=== PATIENT | female | born 1970 | race Caucasian/White ===

== ENCOUNTER 2020-04-07 19:39 | Emergency (ER) | payer MEDICAID, SELFPAY ==
[2020-04-07 19:46] VITALS: BP 126/79; PULSE 89; RESP 18; TEMP 36.9; O2SAT 97; BMI 45.1
--- NOTE | 2020-04-07 19:50 | ED_ITS ---
HPI - Chest Pain General Chief Complaint: Chest Pain Stated Complaint: chest pain Time Seen by Provider: 04/07/20 19:50 Source: patient Mode of arrival: EMS Limitations: no limitations History of Present Illness HPI narrative: During dialysis patient had chest pain. Patient had a stress test in the recent past no CAD, does have a history of CHF MD complaint: chest heaviness Onset (ago): minute(s) (10) Onset: other (during dialysis) Pain location: substernal Quality: tightness Exacerbating factors: other (patient dropped her pressure and they gave her IV fluid and she did well) Related Data Allergies Allergy/AdvReac Type Severity Reaction Status Date / Time levofloxacin [From Levaquin] Allergy Anaphylaxis Verified 04/07/20 19:57 Review of Systems Constitutional: Constitutional: Reports no additional constitutional complaints Eyes: Eyes: Reports no additional eye complaints ENT: Denies dizziness Cardiovascular: Cardiovascular: Reports no additional cardiovascular complaints Respiratory: Respiratory: Reports as per HPI Gastrointestinal: Gastrointestinal: Reports no additional gastrointestinal complaints Genitourinary: Genitourinary: Reports no additional female genitourinary complaints Musculoskeletal: Musculoskeletal: Reports no additional musculoskeletal complaints Integumentary/Breasts: Skin/Breast: Denies rash Neurologic: Reports system reviewed and no additional complaints, except as documented, Denies dizziness and Denies Sensory deficit (Neuro) Psychiatric: Psychiatric: Denies anxiety [facility] Past Medical History Medical History (Updated 04/08/20 @ 01:18 by Ethan Lopez MD) CHF (congestive heart failure) Dialysis patient Kidney disease Raynaud disease Social History Social History Alcohol intake: never Smoking Status: Former smoker Smoked in Last 30 Days: No Use of substances other than those prescribed or required for medical reasons: No Advance Directives: No Advance Directives Information Provided: Yes Physical Exam Vital Signs: Vital Signs: Vital Signs Temp Pulse Resp BP Pulse Ox 04/07/20 23:23 86 18 127/72 100 04/07/20 19:46 98.4 F 89 18 126/79 97 Body Mass Index 45.1 Const: Other: obese female looking older than stated age and chronically ill Nutritional Appearance: obese Orientation/consciousness: oriented to person and patient oriented x3 Limitations: no limitations HENMT: Head: Yes normal to inspection Ears: external ears normal General nose exam: Normal external nose present Mouth: Normal oral and palatal mucosa present and oropharynx normal Throat: Yes posterior oropharynx normal Eyes: General: appearance normal, both eyes and all related structures Neck: Other: supple Neck: Yes normal visual inspection Chest: Chest palpation & inspection: normal inspection of the chest Resp: Auscultation: clear to auscultation bilaterally Cardio: Jugular venous distension: no JVD Rate: regular rate Rhythm: regular rhythm Heart sounds: S1 normal heart sound present and S2 normal heart sound present GI: Inspection: Yes normal to inspection Palpation (GI): Soft to palpation, nontender and No hepatosplenomegaly present Auscultation: normal bowel sounds : General: Yes no CVA tenderness Back/Spine/Pelvis: Back: no CVA tenderness Skin: General skin exam: no rashes or lesions noted Neuro: General: oriented to person and patient oriented x3 Cranial nerves: Yes CN's II-XII intact bilaterally Motor exam (neuro): 5/5 motor strength present throughout Sensory Exam: No Sensory deficit (Neuro) Extrem: Other: fistula in right arm Psych: Appearance: grossly normal Course Course Course Narrative: troponin came back intermediate, I doubt this is cardiac but will trend levels Reevaluation(s) Reevaluation #1: patient with decreasing troponin based on unlikely cardiac story will dc home Time: 01:13 MDM - Chest Pain MDM Narrative Medical decision making narrative: atypical chest pain decreasing intermediate troponin Lab Data Result diagrams: 04/07/20 21:02 04/07/20 21:02 Labs: Lab Results 04/07/20 04/07/20 04/07/20 Range/Units 21:02 21:02 21:02 WBC 6.2 (4.8-10.8) X10*3/uL RBC 3.29 L (4.20-5.50) X10*6/uL Hgb 11.0 L (12.0-16.0) g/dl Hct 32.4 L (37-47) % MCV 98.5 H (80-98) fL MCH 33.4 H (27.0-33.0) pg MCHC 34.0 (31.0-35.0) g/dl RDW 14.2 (11.0-16.0) % Plt Count 154 L (160-400) X10*3/uL MPV 9.1 L (9.4-12.3) fL Immature Gran % (Auto) 0.5 H (0.0-0.4) % Neut % (Auto) 59.7 (45-73) % Lymph % (Auto) 32.4 (20-40) % Peach % (Auto) 5.8 (2-11) % Eos % (Auto) 1.3 (0-4) % Baso % (Auto) 0.3 (0-2) % Lymph # (Auto) 2.0 (1.2-4.9) X10*3/uL Peach # (Auto) 0.4 (0.1-1.2) X10*3/uL Eos # (Auto) 0.1 (0.0-0.4) X10*3/uL Baso # (Auto) 0.0 (0.0-0.2) X10*3/uL Abs Immat Gran (auto) 0.03 (0.00-0.03) X10*3/uL Absolute Neuts (auto) 3.7 (2.0-8.3) X10*3/uL Absolute Nucleated RBC 0.000 (0.0-0.012) X10*3/uL Nucleated RBC % (auto) 0.0 (0.0-0.2) /100WBC Sodium 137 (135-145) mmol/L Potassium 4.2 (3.3-5.1) mmol/l Chloride 97 (96-108) mmol/L Carbon Dioxide 29 (22-29) mmol/L Anion Gap 15 (12-20) BUN 42 H (9-16) mg/dL Creatinine 5.92 H* (0.5-1.4) mg/dL Estim Creat Clear Calc 14.4 Estimated GFR 8 Random Glucose 80 (60-115) mg/dL Calcium 8.4 (8.4-10.2) mg/dL Troponin I High Sens 29.7 H (<3.5-17.0) ng/L 04/08/20 Range/Units 00:17 WBC (4.8-10.8) X10*3/uL RBC (4.20-5.50) X10*6/uL Hgb (12.0-16.0) g/dl Hct (37-47) % MCV (80-98) fL MCH (27.0-33.0) pg MCHC (31.0-35.0) g/dl RDW (11.0-16.0) % Plt Count (160-400) X10*3/uL MPV (9.4-12.3) fL Immature Gran % (Auto) (0.0-0.4) % Neut % (Auto) (45-73) % Lymph % (Auto) (20-40) % Peach % (Auto) (2-11) % Eos % (Auto) (0-4) % Baso % (Auto) (0-2) % Lymph # (Auto) (1.2-4.9) X10*3/uL Peach # (Auto) (0.1-1.2) X10*3/uL Eos # (Auto) (0.0-0.4) X10*3/uL Baso # (Auto) (0.0-0.2) X10*3/uL Abs Immat Gran (auto) (0.00-0.03) X10*3/uL Absolute Neuts (auto) (2.0-8.3) X10*3/uL Absolute Nucleated RBC (0.0-0.012) X10*3/uL Nucleated RBC % (auto) (0.0-0.2) /100WBC Sodium (135-145) mmol/L Potassium (3.3-5.1) mmol/l Chloride (96-108) mmol/L Carbon Dioxide (22-29) mmol/L Anion Gap (12-20) BUN (9-16) mg/dL Creatinine (0.5-1.4) mg/dL Estim Creat Clear Calc Estimated GFR Random Glucose (60-115) mg/dL Calcium (8.4-10.2) mg/dL Troponin I High Sens 19.6 H (<3.5-17.0) ng/L ECG Data ECG #1: Interpretation: sinus [address] or twave changes Discharge Plan Discharge Clinical Impression: Atypical chest pain Patient Disposition: Home, Self-Care Instructions: Chest Pain (ED) Referrals: Physician,Unknown [Primary Care Provider] - 2 days
--- NOTE | 2020-04-07 20:06 | ECG_ITS ---
Test Reason : CHEST PAIN Blood Pressure : / mmHG Vent. Rate : 087 BPM Atrial Rate : 089 BPM P-R Int : 174 ms QRS Dur : 088 ms QT Int : 390 ms P-R-T Axes : 050 040 073 degrees QTc Int : 469 ms Normal sinus rhythm Normal ECG No previous ECGs available Referred By: Ethan Lopez Electronically Signed By:VEL VOGEL MD
[2020-04-07 21:09] LABS: Basophils Percent Auto 0.3 % (0-2); Eosinophils Absolute Auto 0.1 X10*3/uL (0.0-0.4); Eosinophils Percent Auto 1.3 % (0-4); Hematocrit 32.4 % (37-47); Imm Gran Abs Auto 0.03 X10*3/uL (0.00-0.03); Imm Gran Pct Auto 0.5 % (0.0-0.4); Lymphocytes Percent Auto 32.4 % (20-40); MANUAL DIFF FLAG NO; Mean Corpuscular Hemoglobin 33.4 pg (27.0-33.0); Mean Corpuscular Volume 98.5 fL (80-98); Mean Platelet Volume 9.1 fL (9.4-12.3); Monocytes Absolute Auto 0.4 X10*3/uL (0.1-1.2); Monocytes Percent Auto 5.8 % (2-11); Neutrophils Absolute Auto 3.7 X10*3/uL (2.0-8.3); Neutrophils Percent Auto 59.7 % (45-73); Platelet Count 154 X10*3/uL (160-400); Red Blood Count 3.29 X10*6/uL (4.20-5.50); Red Cell Distribution Width 14.2 % (11.0-16.0); White Blood Count 6.2 X10*3/uL (4.8-10.8)
[2020-04-07 21:54] LABS: Anion Gap 15 (12-20); Blood Urea Nitrogen 42 mg/dL (9-16); Calcium 8.4 mg/dL (8.4-10.2); Carbon Dioxide 29 mmol/L (22-29); Chloride 97 mmol/L (96-108); Creatinine Clr Calc Pharmacy 14.4; Estimated Glomerular Filt Rate 8; Glucose Random 80 mg/dL (60-115); Potassium 4.2 mmol/l (3.3-5.1); Sodium 137 mmol/L (135-145)
[2020-04-07 22:00] LABS: Troponin-I High Sensitivity 29.7 ng/L (<3.5-17.0)
[2020-04-07 23:23] VITALS: BP 127/72; PULSE 86; RESP 18; O2SAT 100
[2020-04-08 01:10] LABS: Troponin-I High Sensitivity 19.6 ng/L (<3.5-17.0)
== END 2020-04-08 02:46 | disposition home or self-care (01) ==
PROVIDERS: Emergency Provider Emergency Medicine
DX: R07.89 Other chest pain (principal); Z79.899 Other long term (current) drug therapy
CPT/HCPCS: 36415; 80048; 84484; 85025; 93005; 99283; 99284

== ENCOUNTER 2020-07-20 19:57 | Emergency (ER) | payer MEDICAID, SELFPAY ==
[2020-07-20 20:06] VITALS: BP 132/84; BP 135/72; PULSE 91; PULSE 96; RESP 18; TEMP 36.6; O2SAT 96; BMI 48.5
--- NOTE | 2020-07-20 20:12 | PC.NURSE ---
patient a&ox3, wheelchair baseline, patient has a rt av fistula + bruit/thrill, patient also has a rt chest dialysis cath. she has dialysis on , , fri.
--- NOTE | 2020-07-20 21:36 | XR_ITS ---
EXAMINATION: XR CHEST CLINICAL INFORMATION: Cough. COMPARISON: None TECHNIQUE: Frontal portable view of the chest was obtained. 2150 hours FINDINGS: Tubes and lines: Central port catheter tip at cavoatrial junction superior vena cava. Heart size is enlarged. No pulmonary vascular congestion. No airspace opacities. There is slight blunting of costophrenic angles bilaterally may be due to small pleural effusions. XR/XR chest 1V IMPRESSION: 1. Central port catheter tip in superior vena cava. 2. No acute airspace opacities. 3. Blunting costophrenic angles bilateral, possible small bilateral pleural effusions
--- NOTE | 2020-07-20 21:46 | ED_ITS ---
HPI - General Adult General Chief complaint: General Medical Stated complaint: covid coughing bllod Time Seen by Provider: 07/20/20 21:33 Source: patient Mode of arrival: EMS History of Present Illness HPI narrative: This is a 49-year-old female who presents with a few days of noted hemoptysis that she states occurs every time she begins coughing that she has blood streaking into the sputum. She denies any blood clots coming up and denies any choking sensation, shortness of breath, chest pain/palpitations. She states that the initial diarrhea that she had when she was diagnosed with COVID- 19 has completely resolved and rarely makes urine at baseline due to ESRD. When she discussed her symptoms with her coding consultant she was encouraged to be seen and further evaluated in the emergency department. Related Data Allergies Allergy/AdvReac Type Severity Reaction Status Date / Time levofloxacin [From Levaquin] Allergy Anaphylaxis Verified 04/07/20 19:57 Review of Systems Review of Systems: Pertinent positives and negatives as stated in HPI 10 point review of systems is otherwise negative. PMFSH Past Medical History Source: nursing notes reviewed Medical History CHF (congestive heart failure) COPD (chronic obstructive pulmonary disease) Dialysis patient ESRD (end stage renal disease) HTN (hypertension) Hypothyroid Kidney disease Obesity Raynaud disease Social History Social History Alcohol intake: never Smoking Status: Former smoker Use of substances other than those prescribed or required for medical reasons: No Advance Directives: No Advance Directives Information Provided: Yes Physical Exam Vital Signs: Vital Signs: Last Vital Signs Temp 97.8 F 07/20/20 20:06 Pulse 91 07/20/20 20:06 Resp 18 07/20/20 20:06 BP 135/72 07/20/20 20:06 Pulse Ox 96 07/20/20 20:06 Body Mass Index 48.5 VITAL SIGNS: Reviewed. GENERAL: Well developed, well nourished, in no acute distress. NOSE: Nares patent bilateral OROPHARYNX: no oral lesions noted, posterior pharynx clear, no evidence of stigmata of bleeding within the oral cavity or posterior pharynx NECK: Supple, no adenopathy LUNGS: Normal breath sounds. SpO2<96> CHEST WALL: There is a noted dialysis catheter to the right anterior chest wall without evidence of erythema/induration noted CARDIOVASCULAR: Regular rate and rhythm without noted murmurs, no JVD or lower extremity edema. ABDOMEN: Obese, Soft, non-tender, non-distended with bowel sounds. DRAGAN: No skin/tags/external hemorrhoids noted, hard stool/brown in color without gross evidence of blood and good rectal tone. SKIN: Inspection of the skin reveals no rashes, ulcerations, jaundice, pallor, or petechiae. NEUROLOGIC: Alert and oriented x 4. Course Course Course Narrative: This is a 49-year-old female with history and clinical presentation suggestive of irritation associated with coughing contributing to the blood streaking of the sputum, however due to patient's significant medical comorbidities will insure that there is no evidence on imaging or coagulation studies to include platelet count to suggest a more concerning etiology. On review of all investigations there are no acute findings. All results and findings were discussed with the patient at bedside and she was discharged in stable condition with instructions to follow up should she developed any coughing up of clots or shortness of breath, fevers, chills. Medical Decision Making Lab Data Result diagrams: 07/20/20 22:12 07/20/20 22:12 Labs: Lab Results 07/20/20 07/20/20 07/20/20 Range/Units 22:12 22:12 22:12 WBC 5.1 (4.8-10.8) X10*3/uL RBC 3.21 L (4.20-5.50) X10*6/uL Hgb 10.5 L (12.0-16.0) g/dl Hct 32.0 L (37-47) % MCV 99.7 H (80-98) fL MCH 32.7 (27.0-33.0) pg MCHC 32.8 (31.0-35.0) g/dl RDW 12.2 (11.0-16.0) % Plt Count 189 (160-400) X10*3/uL MPV 9.5 (9.4-12.3) fL Immature Gran % (Auto) 0.4 (0.0-0.4) % Neut % (Auto) 52.3 (45-73) % Lymph % (Auto) 39.6 (20-40) % Louisa % (Auto) 6.9 (2-11) % Eos % (Auto) 0.6 (0-4) % Baso % (Auto) 0.2 (0-2) % Lymph # (Auto) 2.0 (1.2-4.9) X10*3/uL Louisa # (Auto) 0.4 (0.1-1.2) X10*3/uL Eos # (Auto) 0.0 (0.0-0.4) X10*3/uL Baso # (Auto) 0.0 (0.0-0.2) X10*3/uL Abs Immat Gran (auto) 0.02 (0.00-0.03) X10*3/uL Absolute Neuts (auto) 2.7 (2.0-8.3) X10*3/uL Absolute Nucleated RBC 0.000 (0.0-0.012) X10*3/uL Nucleated RBC % (auto) 0.0 (0.0-0.2) /100WBC PT 13.0 (10.8-13.0) SEC INR 1.1 (0.9-1.1) Sodium 143 (135-145) mmol/L Potassium 3.8 (3.3-5.1) mmol/l Chloride 99 (96-108) mmol/L Carbon Dioxide 31 H (22-29) mmol/L Anion Gap 17 (12-20) BUN 24 H (9-16) mg/dL Creatinine 4.83 H* (0.5-1.4) mg/dL Estim Creat Clear Calc 18.4 Estimated GFR 10 Random Glucose 87 (60-115) mg/dL Calcium 9.2 D (8.4-10.2) mg/dL Total Bilirubin 0.5 (0.0-1.0) mg/dL AST 20 (5-31) U/L ALT 19 (0-31) U/L Alkaline Phosphatase 72 (39-117) U/L Total Protein 7.8 (6.5-8.0) g/dL Albumin 4.1 (3.5-5.0) g/dL Discharge Plan Discharge Clinical Impression: Blood-tinged sputum Patient Disposition: Home, Self-Care Additional Instructions: 1. Resume all home medications as prescribed. 2. Should you began coughing up bloody clots or have any difficulty with worsening breathing please do not hesitate to return to the emergency department immediately. Referrals: Physician,Unknown [Primary Care Provider] - 2 days
[2020-07-20 22:20] LABS: MANUAL DIFF FLAG NO
[2020-07-20 22:21] LABS: Basophils Percent Auto 0.2 % (0-2); Eosinophils Percent Auto 0.6 % (0-4); Hemoglobin 10.5 g/dl (12.0-16.0); Imm Gran Abs Auto 0.02 X10*3/uL (0.00-0.03); Imm Gran Pct Auto 0.4 % (0.0-0.4); Lymphocytes Percent Auto 39.6 % (20-40); Mean Corpuscular HGB Conc 32.8 g/dl (31.0-35.0); Mean Corpuscular Hemoglobin 32.7 pg (27.0-33.0); Mean Corpuscular Volume 99.7 fL (80-98); Mean Platelet Volume 9.5 fL (9.4-12.3); Monocytes Absolute Auto 0.4 X10*3/uL (0.1-1.2); Monocytes Percent Auto 6.9 % (2-11); Neutrophils Absolute Auto 2.7 X10*3/uL (2.0-8.3); Neutrophils Percent Auto 52.3 % (45-73); Platelet Count 189 X10*3/uL (160-400); Red Blood Count 3.21 X10*6/uL (4.20-5.50); Red Cell Distribution Width 12.2 % (11.0-16.0); White Blood Count 5.1 X10*3/uL (4.8-10.8)
[2020-07-20 22:41] LABS: INTERNATIONAL NORM RATIO 1.1 (0.9-1.1)
[2020-07-20 22:47] LABS: Alanine Aminotransferase 19 U/L (0-31); Albumin Level 4.1 g/dL (3.5-5.0); Alkaline Phosphatase 72 U/L (39-117); Anion Gap 17 (12-20); Aspartate Amino Transferase 20 U/L (5-31); Bilirubin Total 0.5 mg/dL (0.0-1.0); Blood Urea Nitrogen 24 mg/dL (9-16); Calcium 9.2 mg/dL (8.4-10.2); Carbon Dioxide 31 mmol/L (22-29); Chloride 99 mmol/L (96-108); Creatinine Clr Calc Pharmacy 18.4; Estimated Glomerular Filt Rate 10; Glucose Random 87 mg/dL (60-115); Potassium 3.8 mmol/l (3.3-5.1); Sodium 143 mmol/L (135-145); Total Protein 7.8 g/dL (6.5-8.0)
== END 2020-07-21 01:10 | disposition home or self-care (01) ==
PROVIDERS: Emergency Provider Student in an Organized Health Care Education/Training Program
DX: R04.2 Hemoptysis (principal); I13.2 Hypertensive heart and chronic kidney disease with heart failure and with stage 5 chronic kidney disease, or end stage renal disease; N18.6 End stage renal disease; I50.9 Heart failure, unspecified; Z99.2 Dependence on renal dialysis; J44.9 Chronic obstructive pulmonary disease, unspecified
CPT/HCPCS: 36415; 71045; 80053; 85025; 85610; 99283; 99284

== ENCOUNTER → 2020-11-30 09:07 | Outpatient (REF) | payer MEDICAID, SELFPAY ==
--- NOTE | ~2020-11-30 | NM_ITS ---
Myocardial perfusion study Indication: Cardiomyopathy to evaluate for myocardial ischemia Technique: The patient was brought in for a Lexiscan perfusion study on 11/30/2020. Patient performed low-level exercise and was injected 0.4 mg of Lexiscan intravenously. Within a minute of injection, 35 mCi of sestamibi was given intravenously. Images were obtained using the SPECT gamma camera interlaced with the gating device. Images were obtained in supine position. Resting perfusion study was performed on 12/05/2020. Patient was administered 35 mCi of sestamibi intravenously at rest. Images were then obtained in supine position. Images obtained with and without CT attenuation. Total DLP 130 mGy-cm. Images were processed with the software and compared side to side in short axis, horizontal long axis and vertical long axis views. Findings: The stress perfusion study showed nonattenuated images show some thinning of the distal anterolateral wall of the LV myocardium and the distal anterior wall of the LV myocardium with minimally reduced uptake in the basal and mid anterior wall of the LV myocardium attenuation corrected images show mild thinning of the mid anterior and reduced uptake in the mid anterior as well as moderately reduced uptake in the distal anterior and apex of the LV myocardium.. The gated study shows normal LV systolic function with calculated LVEF of 55%. LV cavity is mildly dilated size. The gated study shows normal wall thickening and contraction of segments. Resting study shows both attenuated and not attenuated images show improved uptake in the distal anterior wall of the LV myocardium. Is also improved uptake in the apex on the attenuated corrected images.. Gating at rest reveals normal systolic wall motion with ejection fraction at 55%. The findings are consistent with equivocal for mild distal anterior and apical ischemia. NM/NM ruth perf SPECT rest & str Impression: 1. Myocardial perfusion imaging study shows equivocal for mild distal anterior ischemia mid to distal LAD 2. Gated LVEF is 55% 3. Transient ischemic dilatation present EKG is nondiagnostic for ischemia
--- NOTE | 2020-11-30 09:10 | CA_ITS ---
Acquisition Time: 2020-11-30 09:54:56 Total Exercise Time: 00:02:00 Test Indications: CP Medications: SEE CHART Protocol: LEXISCAN Max HR: 125 BPM 72% of Pred: 172 BPM Max BP: 102/060 mmHG Max Work Load: 1.0 METS Pharmacological stress test with Lexiscan injection while sitting moving right arm, without anginal symptoms, without arrythmia, with BP on low side which she reports as her normal, with nondiagnostic EKG for ischemia. In recovery she had nausea and vomiting tht was treatd with Aminophylline 75mg IVP to reverse Lexiscan with resolution of symptoms. Nuclear images pending. Test reviewed with Dr Arcos. Referred By: Alfredo Gallo Overread By: JOEL GARDNER
== END ==
LOC: HO.CARD 09:07
PROVIDERS: Visit Provider Internal Medicine Cardiovascular Disease
DX: I42.9 Cardiomyopathy, unspecified (principal)
CPT/HCPCS: 78452; 93017; A9500; J0280; J2785

== ENCOUNTER 2021-04-12 19:49 | Emergency (ER) | payer MEDICAID, SELFPAY ==
--- NOTE | ~2021-04-12 | XR_ITS ---
EXAMINATION: XR ABDOMEN KUB CLINICAL INDICATION: Foreign rectal body COMPARISON: None TECHNIQUE: AP view of the abdomen. FINDINGS: Surgical clips over the right groin. No convincing evidence for a foreign body in the region of the rectum or overlying the rectum. Probable pelvic phleboliths. The bowel pattern is nonobstructing. XR/XR KUB IMPRESSION: No convincing evidence for radiopaque foreign body overlying the rectum.
[2021-04-12 19:59] VITALS: BP 118/80; BP 139/82; PULSE 80; PULSE 82; RESP 15; TEMP 36.6; O2SAT 96; O2SAT 97; BMI 44.2
[2021-04-12 20:35] VITALS: BP 124/99; PULSE 81; RESP 18; TEMP 36.8; O2SAT 97
--- NOTE | 2021-04-12 20:41 | ED.SKABFB ---
HPI - Skin/Abscess/Foreign Bdy General Chief complaint: Skin/Abscess/Foreign Body Stated complaint: FOREIGN BODY Time Seen by Provider: 04/12/21 19:50 Source: patient and EMS Mode of arrival: EMS Limitations: no limitations History of Present Illness HPI narrative: Patient comes emergency room via EMS complaining of a rectal foreign body. Patient states prior to arrival she inserted an anal butt plug, lasted and was unable to retrieve it. Patient complaining of localized pain, no abdominal pain. Denies any rectal bleeding Related Data Allergies Allergy/AdvReac Type Severity Reaction Status Date / Time levofloxacin [From Levaquin] Allergy Anaphylaxis Verified 04/07/20 19:57 lorazepam Allergy Unknown Verified 04/12/21 20:06 Review of Systems Review of Systems: Constitutional : No Weight loss, No Fever, No Chills, No Night Sweats, No Fatigue, No Malaise ENT/Mouth : No Hearing loss, No Ear Pain, No Nasal Congestion, No Sinus Pain, No Hoarseness, No sore throat, No Rhinorrhea, No Swallowing Difficulty Eyes: No Eye Pain, No Swelling, No Redness, No Foreign Body, No Discharge, No Vision Changes Cardiovascular : No Chest Pain, No SOB, No Dyspnea on Exertion, No Orthopnea, No Edema, No Palpitations Respiratory : No Cough, No Sputum, No Wheezing, No Smoke Exposure, No Dyspnea Gastrointestinal : No Nausea, No Vomiting, No Diarrhea, No Constipation, mild abdominal discomfort, complaining of retained foreign body in rectum Genitourinary : no irregular bleeding, No Dysuria, No Urinary Frequency, No Hematuria, No Urinary Incontinence, No Urgency, No Flank Pain, No Urinary Flow Changes, No Hesitancy Musculoskeletal : No joint pain, No Myalgias, No Joint Swelling Skin : No Skin Lesions, No rash Neuro : No Weakness, No Numbness, No Paresthesias, No Loss of Consciousness, No Dizziness, No Headache Psych : No Anxiety/Panic, No Depression, No SI/HI/AH/VH, No Social Issues, Heme/Lymph: No Bruising, No Bleeding,No Lymphadenopathy Endocrine : No Polyuria, No Polydipsia, No Temperature Intolerance PMFSH Past Medical History Medical History CHF (congestive heart failure) COPD (chronic obstructive pulmonary disease) Dialysis patient ESRD (end stage renal disease) HTN (hypertension) Hypothyroid Kidney disease Obesity Raynaud disease Social History Social History Alcohol intake: never Patient Tobacco Use Status: Never used Tobacco Use of substances other than those prescribed or required for medical reasons: Yes Substance Use Type: Marijuana Substance Use Frequency: Occasionally Advance Directives: No Advance Directives Information Provided: No Patient : No Physical Exam Vital Signs: Vital Signs: Last Vital Signs Temp 98.2 F 04/12/21 20:35 Pulse 81 04/12/21 20:35 Resp 18 04/12/21 20:35 BP 124/99 H 04/12/21 20:35 Pulse Ox 97 04/12/21 20:35 Body Mass Index 44.2 Const: Other: Appearance: Alert. Oriented X3. No acute distress. Eyes: Pupils equal, round and reactive to light. ENT: Pharynx normal. Neck: Normal inspection. Neck supple. No lymph nodes noted. No crepitus CVS: Normal heart rate and rhythm. Pulses normal. Normal S1 and S2 Respiratory: No respiratory distress. Breath sounds normal. No Wheezing. No rales Abdomen: Soft and nontender. No rigidity. No distention. Rectal: Palpable plastic foreign body in rectum Skin: Skin warm and dry. Normal skin color. Normal skin turgor. Extremities: No lower extremity edema. No lower extremity edema. No Lacerations. No Rash Neuro: Oriented X 3. No motor deficit. No sensory deficit. Moving all extermities. No slurred speech. Course Course Course Narrative: KUB was not able to visualize a foreign body in the rectum. Per patient, it is made out of plastic. The foreign body/anal plug was extracted digitally, no complications Discharge Plan Discharge Clinical Impression: Foreign body in anus and rectum, initial encounter Patient Disposition: Home, Self-Care Instructions: Rectal Foreign Body (ED) Additional Instructions: Please follow-up with your primary care physician tomorrow. If you have any worsening or new symptoms, please return to the emergency room or call 911
--- NOTE | 2021-04-12 22:06 | PC.NURSE ---
per provider no ekg or labs need to be drawn at this time.
[2021-04-12 22:18] VITALS: RESP 16
== END 2021-04-12 22:18 | disposition home or self-care (01) ==
PROVIDERS: Emergency Provider Emergency Medicine
DX: T18.5XXA Foreign body in anus and rectum, initial encounter (principal); R10.9 Unspecified abdominal pain; I13.2 Hypertensive heart and chronic kidney disease with heart failure and with stage 5 chronic kidney disease, or end stage renal disease; N18.6 End stage renal disease; I50.9 Heart failure, unspecified; F12.99 Cannabis use, unspecified with unspecified cannabis-induced disorder; Y29.XXXA Contact with blunt object, undetermined intent, initial encounter; Y93.9 Activity, unspecified; Y92.9 Unspecified place or not applicable; Y99.9 Unspecified external cause status; Z79.899 Other long term (current) drug therapy
CPT/HCPCS: 46608; 74018; 99284

== ENCOUNTER 2021-05-02 10:55 | Emergency (ER) | payer MEDICAID, SELFPAY ==
[2021-05-02 11:18] VITALS: BP 108/58; PULSE 86; O2SAT 97
[2021-05-02 11:23] VITALS: BP 108/58; BP 168/98; PULSE 85; PULSE 86; RESP 16; TEMP 36.9; O2SAT 97; BMI 42.7
--- NOTE | 2021-05-02 11:31 | ED.NAVMDI ---
HPI - Nausea/Vomiting/Diarrhea General Chief complaint: Nausea/Vomiting/Diarrhea Stated complaint: N/V X'S 2 DAYS Time Seen by Provider: 05/02/21 11:24 Source: patient and EMS Limitations: no limitations History of Present Illness HPI Narrative: This is a 50 years old with morbid obesity chronic renal failure on hemodialysis presented by ambulance with chief complaint no nausea vomiting since last night. Denies any abdominal pain she is due for dialysis at 15:00 today MD elicited complaint: nausea and vomiting Onset (ago): day(s) (1) Description of diarrhea: watery Associated nausea: Yes Associated abdominal pain: No Location of pain: none Quality: dull Exacerbating factors: eating Relieving factors: none Associated symptoms: denies other symptoms Related Data Allergies Allergy/AdvReac Type Severity Reaction Status Date / Time levofloxacin [From Levaquin] Allergy Anaphylaxis Verified 04/07/20 19:57 lorazepam Allergy Unknown Verified 04/12/21 20:06 Review of Systems Review of Systems: Yes all other systems are reviewed and are negative Constitutional: Constitutional: Denies chills ENT: Denies dysphagia, Denies vertigo and Denies dizziness Cardiovascular: Cardiovascular: Reports no additional cardiovascular complaints Respiratory: Respiratory: Reports no additional respiratory complaints Gastrointestinal: Gastrointestinal: Reports bloating, Denies dysphagia, Reports nausea and Denies vomiting Musculoskeletal: Musculoskeletal: Reports no additional musculoskeletal complaints Neurologic: Reports system reviewed and no additional complaints, except as documented, Denies vertigo and Denies dizziness PMF Past Medical History Medical History CHF (congestive heart failure) COPD (chronic obstructive pulmonary disease) Dialysis patient ESRD (end stage renal disease) HTN (hypertension) Hypothyroid Kidney disease Obesity Raynaud disease Social History Social History Alcohol intake: never Patient Tobacco Use Status: Never used Tobacco Use of substances other than those prescribed or required for medical reasons: No Substance Use Type: Marijuana Advance Directives: Yes Advance Directives Information Provided: Yes Advance Directives on File: No Physical Exam Vital Signs: Vital Signs: Last Vital Signs Temp 98.5 F 05/02/21 11:23 Pulse 85 05/02/21 11:23 Resp 16 05/02/21 11:23 BP 168/98 H 05/02/21 11:23 Pulse Ox 97 11/10/21 11:23 Body Mass Index 42.7 Const: Other: On physical examination she looks no toxic, comfortable General: cooperative and anxious HENMT: Head: Yes normal to inspection General nose exam: Normal external nose present Face and sinus: Yes normal facial exam Mouth: Normal oral and palatal mucosa present Throat: Yes posterior oropharynx normal Neck: Other: Neck is supple full range of motion no tenderness Thyroid: Thyroid normal Chest: Chest palpation & inspection: normal inspection of the chest Resp: Effort & Inspection: normal respiratory effort Auscultation: clear to auscultation bilaterally Cardio: Jugular venous distension: no JVD Rate: regular rate Rhythm: regular rhythm GI: Other: Soft nontender, nondistended Skin: General skin exam: no rashes or lesions noted, elasticity normal and turgor normal Course Reevaluation(s) Reevaluation #1: I re-evaluated the the patient about 1 PN she is feeling better the labs are baseline (she has chronic renal insufficiency) at this point I think the patient can be safely discharged home, she has an appointment at 15:00 with the dialysis MDM - Nausea/Vomiting/Diarrhea Lab Data Result diagrams: 05/02/21 11:46 05/02/21 11:46 Labs: Lab Results 05/02/21 05/02/21 05/02/21 Range/Units 11:35 11:46 11:46 WBC 6.0 (4.8-10.8) X10*3/uL RBC 3.74 L (4.20-5.50) X10*6/uL Hgb 12.4 (12.0-16.0) g/dl Hct 37.8 (37.0-47.0) % MCV 101.1 H (80.0-98.0) fL MCH 33.2 H (27.0-33.0) pg MCHC 32.8 (31.0-35.0) g/dl RDW 12.1 (11.0-16.0) % Plt Count 190 (160-400) X10*3/uL MPV 10.0 (9.4-12.3) fL Immature Gran % (Auto) 0.2 (0.0-0.4) % Neut % (Auto) 67.7 (45-73) % Lymph % (Auto) 25.7 (20-40) % [place] % (Auto) 5.1 (2-11) % Eos % (Auto) 0.8 (0-4) % Baso % (Auto) 0.5 (0-2) % Lymph # (Auto) 1.6 (1.2-4.9) X10*3/uL [place] # (Auto) 0.3 (0.1-1.2) X10*3/uL Eos # (Auto) 0.1 (0.0-0.4) X10*3/uL Baso # (Auto) 0.0 (0.0-0.2) X10*3/uL Abs Immat Gran (auto) 0.01 (0.00-0.03) X10*3/uL Absolute Neuts (auto) 4.1 (2.0-8.3) x10*3/uL Absolute Nucleated RBC 0.000 (0.0-0.012) X10*3/uL Nucleated RBC % (auto) 0.0 (0.0-0.2) /100WBC Sodium 141 (135-145) mmol/L Potassium 4.3 (3.3-5.1) mmol/L Chloride 98 (96-108) mmol/L Carbon Dioxide 30 H (22-29) mmol/L Anion Gap 17 (12-20) BUN 48 H D (9-16) mg/dL Creatinine 10.85 H* (0.5-1.4) mg/dL Estim Creat Clear Calc 7.7 Estimated GFR 4 POC Glucose 68 (60-115) mg/dL Random Glucose 95 (60-115) mg/dL Calcium 10.3 H D (8.4-10.2) mg/dL Total Bilirubin 0.4 (0.0-1.0) mg/dL AST 16 (5-31) U/L ALT 9 (0-31) U/L Alkaline Phosphatase 70 (39-117) U/L Total Protein 8.0 (6.5-8.0) g/dL Albumin 4.2 (3.5-5.0) g/dL Lipase 27 (8-78) U/L Discharge Plan Discharge Clinical Impression: Vomiting Patient Disposition: Home, Self-Care Instructions: Acute Nausea and Vomiting (ED) Additional Instructions: Follow-up with your primary care physician a clear liquid diet today do not miss hemodialysis today at 15:00 Referrals: Sergio Brandon MD [Primary Care Provider] - 2 days
--- NOTE | 2021-05-02 11:36 | PC.NURSE ---
RN aware of poc 68
[2021-05-02 11:39] LABS: Glucose, Whole Blood 68 mg/dL (60-115)
[2021-05-02] MEDS: ondansetron HCL 4 MG/2 ML VIAL IVPUSH (11:49)
[2021-05-02 12:06] LABS: MANUAL DIFF FLAG NO
[2021-05-02 12:09] LABS: Basophils Percent Auto 0.5 % (0-2); Eosinophils Absolute Auto 0.1 X10*3/uL (0.0-0.4); Eosinophils Percent Auto 0.8 % (0-4); Hematocrit 37.8 % (37.0-47.0); Hemoglobin 12.4 g/dl (12.0-16.0); Imm Gran Abs Auto 0.01 X10*3/uL (0.00-0.03); Imm Gran Pct Auto 0.2 % (0.0-0.4); Lymphocytes Absolute Auto 1.6 X10*3/uL (1.2-4.9); Lymphocytes Percent Auto 25.7 % (20-40); Mean Corpuscular HGB Conc 32.8 g/dl (31.0-35.0); Mean Corpuscular Hemoglobin 33.2 pg (27.0-33.0); Mean Corpuscular Volume 101.1 fL (80.0-98.0); Monocytes Absolute Auto 0.3 X10*3/uL (0.1-1.2); Monocytes Percent Auto 5.1 % (2-11); Neutrophils Absolute Auto 4.1 x10*3/uL (2.0-8.3); Neutrophils Percent Auto 67.7 % (45-73); Platelet Count 190 X10*3/uL (160-400); Red Blood Count 3.74 X10*6/uL (4.20-5.50); Red Cell Distribution Width 12.1 % (11.0-16.0)
[2021-05-02] MEDS: 0.9 % Sodium Chloride 500 ML IV (12:17)
[2021-05-02 12:31] LABS: Alanine Aminotransferase 9 U/L (0-31); Albumin Level 4.2 g/dL (3.5-5.0); Alkaline Phosphatase 70 U/L (39-117); Anion Gap 17 (12-20); Aspartate Amino Transferase 16 U/L (5-31); Bilirubin Total 0.4 mg/dL (0.0-1.0); Blood Urea Nitrogen 48 mg/dL (9-16); Calcium 10.3 mg/dL (8.4-10.2); Carbon Dioxide 30 mmol/L (22-29); Chloride 98 mmol/L (96-108); Glucose Random 95 mg/dL (60-115); Lipase 27 U/L (8-78); Potassium 4.3 mmol/L (3.3-5.1); Sodium 141 mmol/L (135-145)
[2021-05-02 12:51] LABS: Creatinine Clr Calc Pharmacy 7.7; Estimated Glomerular Filt Rate 4
--- NOTE | 2021-05-02 13:37 | PC.NURSE ---
pt reports feeling much better denies nausea and pain at this time, pt is tolerating po intake as well
== END 2021-05-02 14:28 | disposition home or self-care (01) ==
PROVIDERS: Emergency Provider Emergency Medicine; PCP Family Medicine
DX: R11.2 Nausea with vomiting, unspecified (principal); I13.2 Hypertensive heart and chronic kidney disease with heart failure and with stage 5 chronic kidney disease, or end stage renal disease; N18.6 End stage renal disease; I50.9 Heart failure, unspecified; E66.01 Morbid (severe) obesity due to excess calories; Z99.2 Dependence on renal dialysis
CPT/HCPCS: 36415; 80053; 82947; 83690; 85025; 96361; 96374; 99284; J2405

== ENCOUNTER 2021-12-31 14:15 | Outpatient (REF) | payer MEDICAID, SELFPAY ==
--- NOTE | ~2021-12-31 | XR_ITS ---
EXAMINATION: XR ABDOMEN COMPLETE CLINICAL INDICATION: Malfunction of peritoneal dialysis catheter COMPARISON: Previous KUB March 2021 TECHNIQUE: 2 views of the abdomen. FINDINGS: There is a catheter seen in the left lower quadrant with tip coiled in the left pelvis. The catheter appears intact. The catheter is new from 2020 x-ray. Bowel gas pattern is normal. No free air is seen. No suspicious calcifications are seen. There are degenerative changes of the lower lumbar spine and left hip joint. XR/XR abdomen min 2V IMPRESSION: Dialysis catheter in the left lower quadrant with tip coiled in the left lateral pelvis.
== END 2021-12-31 14:16 | disposition home or self-care (01) ==
LOC: HO.XRAY 14:15
PROVIDERS: Visit Provider Internal Medicine Nephrology
DX: T85.691A Other mechanical complication of intraperitoneal dialysis catheter, initial encounter (principal)
CPT/HCPCS: 74019

== ENCOUNTER 2022-10-29 16:05 | Emergency (ER) | payer OTHER, SELFPAY ==
--- NOTE | 2022-10-29 18:35 | ED.SKABFB ---
HPI - Skin/Abscess/Foreign Bdy General Chief complaint: Skin/Abscess/Foreign Body <JOSE Garzon Last Filed: 10/29/22 18:55> Stated complaint: rash in groin area <JOSE Garzon Last Filed: 10/29/22 18:55> Time Seen by Provider: 10/29/22 20:07 <JOSE Garzon Last Filed: 10/29/22 18:55> Source: patient and RN notes reviewed <JOSE Sarkar Last Filed: 10/29/22 20:46> Mode of arrival: ambulatory <JOSE Sarkar Last Filed: 10/29/22 20:46> Limitations: no limitations <JOSE Sarkar Last Filed: 10/29/22 20:46> History of Present Illness HPI narrative: This is a 52-year-old female, with a past medical history of CHF, ESRD on home HD, HTN, hypothyroid, c/o recurrent pruritic, erythematous, painful rash to beneath bilateral breasts and groin x1 year, worsening over the last week. Patient reports that over the last year she has had intermittent fungal rashes below her breasts and in her groin. She has been seen by her primary care physician who prescribes her any antifungal she reports that her symptoms resolved but shortly after her symptoms reappear again. Patient reports that she has been on Diflucan twice in the last 5 months because these symptoms. Patient reports that the rashes are very itchy and painful and oftentimes keeps her awake at night. Denies any fevers or chills. Denies seeing a nurse sitter for these symptoms. Denies using any new soaps lotions or detergents. Denies any complaints or concerns at this time <JOSE Sarkar Last Filed: 10/29/22 20:46> MD complaint: rash <JOSE Sarkar Last Filed: 10/29/22 20:46> Onset (ago): week(s) <JOSE Sarkar Last Filed: 10/29/22 20:46> Location: chest and genitals <JOSE Sarkar Last Filed: 10/29/22 20:46> Severity: severe <JOSE Sarkar Last Filed: 10/29/22 20:46> Quality: burning and pruritic <Usha TownsendJOSE coello Last Filed: 10/29/22 20:46> Pain Consistency: constant <JOSE Sarkar Last Filed: 10/29/22 20:46> Relieving factors: none and medication <JOSE Sarkar Last Filed: 10/29/22 20:46> Exacerbating factors: none <JOSE Sarkar Last Filed: 10/29/22 20:46> Context: none <JOSE Sarkar Last Filed: 10/29/22 20:46> Associated symptoms: denies other symptoms <JOSE Sarkar Last Filed: 10/29/22 20:46> Treatments prior to arrival: none <JOSE Sarkar Last Filed: 10/29/22 20:46> Related Data Home medications: Previous Rx's Medication Instructions Recorded fluconazole 150 mg tablet 150 mg PO QWEEK 4 days #1 tab 10/29/22 miconazole nitrate 2 % topical 1 appl topical DAILY #85 grams 10/29/22 powder (Thera Antifungal) white petrolatum 61 % topical 1 appl topical DAILY #99 grams 10/29/22 cream (Dereck Moisture Barrier Cr) <JOSE Garzon Last Filed: 10/29/22 18:55> Allergies/Adverse reactions: Allergies Allergy/AdvReac Type Severity Reaction Status Date / Time levofloxacin [From Levaquin] Allergy Anaphylaxis Verified 04/07/20 19:57 lorazepam Allergy Unknown Verified 04/12/21 20:06 <JOSE Garzon Last Filed: 10/29/22 18:55> Review of Systems Review of Systems: Constitutional: No Weight loss, No Fever, No Chills ENT/Mouth: No Ear Pain, No Nasal Congestion, No Sinus Pain, No Hoarseness, No sore throat, No Rhinorrhea, No Swallowing Difficulty Cardiovascular: No Chest Pain, No SOB Respiratory: No Cough, No Sputum, No Wheezing Gastrointestinal: No Nausea, No Vomiting, No Diarrhea, No Constipation, No Abdominal pain Genitourinary: No Dysuria, No Urinary Frequency, No Hematuria, No Urinary Incontinence/retention, No Urgency, No Flank Pain Musculoskeletal: No joint pain, No Myalgias, No Joint Swelling Skin: No Skin Lesions, + rash Neuro: No Weakness, No Numbness, No Paresthesias <JOSE Sarkar - Last Filed: 10/29/22 20:46> Yes all other systems are reviewed and are negative <JOSE Sarkar - Last Filed: 10/29/22 20:46> Constitutional: Constitutional: Reports as per HPI <JOSE Sarkar - Last Filed: 10/29/22 20:46> [facility] Past Medical History Medical History: Medical History CHF (congestive heart failure) COPD (chronic obstructive pulmonary disease) Dialysis patient ESRD (end stage renal disease) HTN (hypertension) Hypothyroid Kidney disease Obesity Raynaud disease <JOSE Garzon - Last Filed: 10/29/22 18:55> Social History Social History: Social History Alcohol intake: never Patient Tobacco Use Status: Never used Tobacco Substance Use Type: Marijuana Advance Directives: No Advance Directives Information Provided: No <JOSE Garzon - Last Filed: 10/29/22 18:55> Physical Exam Vital Signs: Vital Signs: Last Vital Signs Temp 98.1 F 10/29/22 18:52 Pulse 92 10/29/22 18:52 Resp 18 10/29/22 18:52 BP 148/96 H 10/29/22 18:52 Pulse Ox 98 10/29/22 18:52 O2 Del Method Room Air 10/29/22 18:52 BMI result Body Mass Index 43.9 <JOSE Garzon - Last Filed: 10/29/22 18:55> Vital Signs: Last Vital Signs Temp 98.1 F 10/29/22 18:52 Pulse 92 10/29/22 18:52 Resp 18 10/29/22 18:52 BP 148/96 H 10/29/22 18:52 Pulse Ox 98 10/29/22 18:52 O2 Del Method Room Air 10/29/22 18:52 BMI result Body Mass Index 43.9 <JOSE Sarkar Last Filed: 10/29/22 20:46> Const: General: cooperative, comfortable and no acute distress <Usha iDazoumou PA - Last Filed: 10/29/22 20:46> Orientation/consciousness: patient oriented x3 <Usha Townsend, PA - Last Filed: 10/29/22 20:46> Limitations: no limitations <Usha Diazoumou PA - Last Filed: 10/29/22 20:46> HEENT: Head: Yes normal to inspection, Yes normocephalic and Yes atraumatic <Usha Townsend, PA - Last Filed: 10/29/22 20:46> Ears: hearing grossly normal bilaterally <Usha Diazoumou PA - Last Filed: 10/29/22 20:46> General nose exam: Normal external nose present <Usha Townsend PA - Last Filed: 10/29/22 20:46> Face and sinus: Yes normal facial exam <Usha Townsend PA - Last Filed: 10/29/22 20:46> Mouth: Normal oral and palatal mucosa present, oropharynx normal and moist mucous membranes <Usha Townsend PA - Last Filed: 10/29/22 20:46> Throat: Yes posterior oropharynx normal <Usha Diazoumou PA - Last Filed: 10/29/22 20:46> Eyes: General: appearance normal, both eyes and all related structures <Usha Townsend, PA - Last Filed: 10/29/22 20:46> Eyelids: Yes eyelids normal <Usha Diazoumou PA - Last Filed: 10/29/22 20:46> Conjunctivae: conjunctivae normal <Usha Townsend PA - Last Filed: 10/29/22 20:46> Sclerae: sclerae normal <Usha Kristian PA - Last Filed: 10/29/22 20:46> Pupils: Equal, round and reactive pupils present <Usha Townsend PA - Last Filed: 10/29/22 20:46> EOM: EOMs intact bilaterally <Usha Townsend PA - Last Filed: 10/29/22 20:46> Neck: Neck: Yes normal visual inspection, Yes full ROM and Yes no lymphadenopathy <Usha Townsend PA - Last Filed: 10/29/22 20:46> Lymphatic: no lymphadenopathy noted <Usha Townsend PA - Last Filed: 10/29/22 20:46> Chest: Chest palpation & inspection: normal inspection of the chest <Usha Townsend [facility] Last Filed: 10/29/22 20:46> Resp: Effort & Inspection: normal respiratory effort and able to speak in complete sentences <Ushahari Townsend [facility] Last Filed: 10/29/22 20:46> Auscultation: clear to auscultation bilaterally, no crackles, no rales, no rhonchi and no wheezes <Usha Townsend [facility] Last Filed: 10/29/22 20:46> Cardio: Rate: regular rate <Usha Townsend [facility] Last Filed: 10/29/22 20:46> Rhythm: regular rhythm <JOSE Sarkar Last Filed: 10/29/22 20:46> Heart sounds: S1 normal heart sound present and S2 normal heart sound present <Usha Townsend [facility] Last Filed: 10/29/22 20:46> GI: Inspection: Yes normal to inspection <Usha Townsend [facility] Last Filed: 10/29/22 20:46> Skin: Other: Below bilateral breast there is an erythematous scaly plaque with excoriations. No surrounding erythema edema redness. No fluctuance. Under abdominal fold extending into the inner groin and external genitalia there is beefy, red, skin with white crusting, no fluctance, drainage. Does not extend into labial folds or into the perianal region. Enrollment Nurse, Liset Elliott PA-C present during entire examination. <Usha Townsend [facility] Last Filed: 10/29/22 20:46> Trauma: no lacerations or abrasions <Usha Townsend [facility] Last Filed: 10/29/22 20:46> Wounds: no wounds <Usha Townsend [facility] Last Filed: 10/29/22 20:46> Neuro: General: patient oriented x3 and moves all extremities <JOSE Sarkar Last Filed: 10/29/22 20:46> Cranial nerves: Yes Equal, round and reactive pupils present <Usha Townsend [facility] Last Filed: 10/29/22 20:46> Extrem: General: Yes normal to inspection <JOSE Sarkar Last Filed: 10/29/22 20:46> Right upper extremity: normal to inspection <JOSE Sarkar Last Filed: 10/29/22 20:46> Left upper extremity: normal to inspection <JOSE Sarkar Last Filed: 10/29/22 20:46> Right lower extremity: normal to inspection <JOSE Sarkar Last Filed: 10/29/22 20:46> Left lower extremity: normal to inspection <JOSE Sarkar Last Filed: 10/29/22 20:46> Course Course Course Narrative: RME: 52yo F w/PMHx CHF, ESRD on home HD, HTN, hypothyroid, c/o worsening pruritic, erythematous, painful rash to abdomen, chest, groin x1 year. Area not evaluated in triage Full HPI, ROS and PE to be performed by primary ED provider. <JOSE Garzon Last Filed: 10/29/22 18:55> Medical Decision Making Medical Decision Making MDM Narrative: 52-year-old female, with a past medical history of CHF, ESRD on home HD, HTN, hypothyroid, c/o recurrent pruritic, erythematous, painful rash to beneath bilateral breasts and groin x1 year, worsening over the last week. Rash presentation consistent with clint intertrigo. Does not appear to be infected. Will treat orally and topically. Educated on the importance of gentle cleansing with gentle soaps in keeping areas as dry as possible. Advised to follow-up with the nurse sitter for further management of her symptoms. Patient is nontoxic appearing, vital signs stable. Patient stable for discharge. <JOSE Sarkar Last Filed: 10/29/22 20:46> Differential Diagnosis Differential Diagnoses: The differential diagnosis associated with the presentation includes <JOSE Sarkar Last Filed: 10/29/22 20:46> Clint intertrigo, cellulitis, contact dermatitis, folliculitis <JOSE Sarkar Last Filed: 10/29/22 20:46> Admission/Observation Consideration of admission/observation: Escalation of care including admission/observation considered <JOSE Sarkar Last Filed: 10/29/22 20:46> Lab Data MDM Lab Attestation statement: I reviewed the patient's lab results. <JOSE Sarkar Last Filed: 10/29/22 20:46> Discharge Plan Discharge Clinical Impression: Candidiasis, intertrigo <JOSE Garzon - Last Filed: 10/29/22 18:55> Patient Disposition: Home, Self-Care <JOSE Garzon - Last Filed: 10/29/22 18:55> Instructions: Skin Yeast Infection (ED) <JOSE Garzon - Last Filed: 10/29/22 18:55> Additional Instructions: Please use take prescribed medication as directed. Please call your primary care physician for further management. I have also attached a nurse sitter's information that you can call to follow up with. Please keep the areas clean and dry. If any new or worsening symptoms occur please return for re-evaluation. <JOSE Garzon - Last Filed: 10/29/22 18:55> Prescriptions: New fluconazole 150 mg tablet 150 mg PO QWEEK 4 Days Qty: 1 0RF Dereck Moisture Barrier Cr 61 % cream 1 appl topical DAILY Qty: 99 0RF miconazole nitrate [Thera Antifungal] 2 % powder 1 appl topical DAILY Qty: 85 0RF <JOSE Garzon - Last Filed: 10/29/22 18:55>
[2022-10-29 18:52] VITALS: BP 148/96; PULSE 92; RESP 18; TEMP 36.7; O2SAT 98; BMI 43.9
--- NOTE | 2022-10-29 20:59 | PC.NURSE ---
Patient with fungal rashes under her breasts and in her groin area. Patient states pain in the areas and that she wakes up feeling the need to scratch the areas.
[2022-10-29 21:03] VITALS: BP 146/91; PULSE 85; RESP 18; O2SAT 98
== END 2022-10-29 21:05 | disposition home or self-care (01) ==
PROVIDERS: Emergency Provider Internal Medicine; PCP Family Medicine
DX: B37.2 Candidiasis of skin and nail (principal); E11.22 Type 2 diabetes mellitus with diabetic chronic kidney disease; I13.2 Hypertensive heart and chronic kidney disease with heart failure and with stage 5 chronic kidney disease, or end stage renal disease; I50.9 Heart failure, unspecified; N18.6 End stage renal disease; Z99.2 Dependence on renal dialysis
CPT/HCPCS: 99283; 99284